=== PATIENT | female | born 1995 | race Caucasian/White ===

== ENCOUNTER 2021-09-02 20:47 | Emergency (ER) | payer OTHER, MEDICAID, SELFPAY ==
[2021-09-02 21:09] VITALS: BP 141/68; PULSE 74; RESP 18; TEMP 35.8; O2SAT 94; BMI 40.7
[2021-09-02] MEDS: DOXYCYCLINE HYCLATE 100 MG TABLET PO (22:03)
[2021-09-02] MEDS: LIDO 1%/SOD BICARB 8.4% (10ML) 10 ML SYRINGE INJ (22:03)
[2021-09-02] MEDS: HYDROCODONE/ACET 5/325 PREPACK 1 BOTTLE MISC (22:23)
[2021-09-02 22:29] VITALS: BP 138/78; PULSE 64; RESP 18; TEMP 36.6; O2SAT 99
--- NOTE | 2021-09-03 04:11 | ED.LOWEXIN ---
HPI - Extremity Injury (Lower) General Chief Complaint: Extremity Injury, Lower Stated Complaint: BUMP RIGHT LEG Time Seen by Provider: 09/02/21 21:58 Source: patient Mode of arrival: Ambulatory Limitations: no limitations History of Present Illness HPI Narrative: 25-year-old female nonsmoker with noncontributory medical history presents with a chief complaint of a few days of increasing pain, redness and swelling of her right medial calf. She thinks maybe was a bug bite. She denies any injury. She has had no systemic findings such as fever, chills nor nausea or vomiting. She denies any history of skin infection or MRSA. She states that it started spontaneously draining a foul-smelling liquid earlier today Related Data Previous Rx's Medication Instructions Recorded doxycycline hyclate 100 mg tablet 100 mg PO BID #20 tab 09/02/21 Allergies Allergy/AdvReac Type Severity Reaction Status Date / Time amoxicillin Allergy Verified 09/02/21 21:09 Review of Systems Review of Systems Narrative: GENERAL: Denies chills, fatigue, malaise, fever, sweats. HEENT: Denies sinus pain, ear pain, sore throat, difficulty swallowing, dizziness. RESPIRATORY: Denies dyspnea, cough, wheezing, hemoptysis, sputum. CARDIOVASCULAR: Denies chest pain, palpitations, orthopnea, edema, GASTROINTESTINAL: Denies nausea, vomiting, abdominal pain, diarrhea, constipation, melena. : Denies dysuria, frequency, incontinence, hematuria, urinary retention. MUSCULOSKELETAL: denies weakness, joint pain, or bony pain SKIN: See HPI NEUROLOGIC: Denies weakness, headache, numbness, change in speech, confusion, seizures, incoordination. PSYCHIATRIC: No concerning psychosocial issues. 12 point review of systems is negative except for those stated above Patient History Social History Smoking Status: Never smoker Smoking Status: Never smoker alcohol intake frequency: holidays/special occasions only Substance Use Type: marijuana Exam Narrative Exam Narrative: GEN: AOx3 and in mild distress EYES: Pupils are equal, round, and reactive to light and accommodation. Extraoccular muscles are intact bilaterally. There is no subconjunctival hemorrhage or exudate. CHEST: Lungs are clear to auscultation bilaterally and free of wheezes, rales, or rhonchi. Heart rate is regular rhythm, there are no murmurs, clicks, rubs, or gallops. There is no chest wall tenderness. ABD: Abdomen is soft and nontender. There is no guarding or rebound. Bowel sounds are normal in all 4 quadrants. There is no mass or organomegaly. EXT: Full painless ROM of all extremities with no loss of sensation or strength. SKIN: 3 x 3 cm area of erythema, warmth and tenderness with induration and a central clearing ulcer with minimal drainage. Otherwise, Warm, pink, and dry. No erythema or rash Initial Vital Signs Initial Vital Signs: Vital Signs Temperature 96.4 F L 09/02/21 21:09 Pulse Rate 74 09/02/21 21:09 Respiratory Rate 18 09/02/21 21:09 Blood Pressure 141/68 H 09/02/21 21:09 Pulse Oximetry 94 09/02/21 21:09 Procedures Abscess I/D I&D #1: Site: lower extremity Side (if applicable): right Local Anesthetic: lidocaine 1% and with bicarb Amount of anesthesia used (mL): 4 Technique: incised with #11 blade Amount of fluid expressed (mL): 8 Irrigation: Yes Packing used?: none Nerve Block Nerve Block 1: Time out performed: Yes Local Anesthetic: lidocaine 1% and with bicarb Amount of anesthesia used (mL): 3 Side: right Nerve Blocks: other (Ring the) Procedure Successful: Yes Patient Tolerated Procedure: Well Complications: none Course Orders Ordered: ED Orders 09/02/21 22:00 Wound Culture and Gram Stain Stat Discontinued Medications Hydrocodone Bitart/Acetaminophen (Hydrocodone/Acet 5/325 Prepack) 1 bottle MISC SEEINSTR ONE Stop: 09/02/21 22:14 Last Admin: 09/02/21 22:23 Dose: 1 bottle Documented by: CURT Doxycycline Hyclate (Doxycycline Hyclate 100 Mg Tablet) 100 mg PO NOW ONE Stop: 09/02/21 21:59 Last Admin: 09/02/21 22:03 Dose: 100 mg Documented by: CURT Lidocaine/Sodium Bicarbonate (Lido 1%/Sod Bicarb 8.4% (10ml) 10 Ml Syringe) 10 ml INJ NOW ONE Stop: 09/02/21 21:59 Last Admin: 09/02/21 22:03 Dose: 10 ml Documented by: ESNODGRASS Vital Signs Vital signs: Vital Signs - 8 hr 09/02/21 21:09 09/02/21 22:29 Temperature 96.4 F L 97.8 F Pulse Rate 74 64 Respiratory Rate 18 18 Blood Pressure 141/68 H 138/78 Pulse Oximetry 94 99 Discharge Plan Departure Patient Disposition: Home Clinical Impression: Acute abscess Instructions: DI for Skin Abscess Activity Restrictions/Additional Instructions: *You have been diagnosed with [superficial cutaneous abscess right lower extremity *What to do: *Please continue to take your regular medications as directed. [x ] New medication prescriptions sent to your pharmacy: [ [facility]] [ ] New medication written as a paper prescription [ ] No new medications given *Please follow up with your primary care provider in 2-3 days, call for an appointment. Let them know you were seen in the Emergency Department and that we ask that you be seen in follow up. We will electronically transmit a record of today's note if your PCP is in our system *If you do not have a primary care provider please contact the [facility] Resource line at [phone]. They will ask some questions about your medical history and help get you set up with a doctor in the community. *Return to Emergency Department if you should have any new, worsening or concerning symptoms, such as [fever greater than 101 F, shaking chills, worsening pain, persistent vomiting or other bothersome symptoms] Prescriptions: New doxycycline hyclate 100 mg tablet 100 mg PO BID Qty: 20 RF: 0
== END 2021-09-02 22:30 | disposition home or self-care (01) ==
PROVIDERS: Emergency Provider Emergency Medicine
DX: L02.415 Cutaneous abscess of right lower limb (principal)
CPT/HCPCS: 10060; 64450; 87070; 87075; 87077; 87147; 87186; 87205; 99283